=== PATIENT | female | born 1955 | race Caucasian/White ===

== ENCOUNTER 2020-10-19 06:59 | Day surgery (SDC) | payer MEDICARE ==
[~2020-10-19] VITALS: Ht 154.9 cm; Wt 64.0 kg
[2020-10-19] MEDS ORDERED: NORVASC 10MG10 MG PO (07:32)
[2020-10-19] MEDS ORDERED: CALCIUM 600MG+D1 TAB PO (07:33)
[2020-10-19] MEDS ORDERED: BUSPAR10 MG PO (07:33)
[2020-10-19] MEDS ORDERED: LOTENSIN40 MG PO (07:33)
[2020-10-19] MEDS ORDERED: LEXAPRO20 MG PO (07:34)
[2020-10-19] MEDS ORDERED: RT ADVAIR 228 DISKUS IH (07:35)
[2020-10-19] MEDS ORDERED: HCTZ 25MG TAB25 MG PO (07:35)
[2020-10-19] MEDS ORDERED: NASONEX SPRAY17 GM NS (07:36)
[2020-10-19] MEDS ORDERED: LOPRESSOR 550 MG/TAB PO (07:36)
[2020-10-19] MEDS ORDERED: ZOCOR 40MG40 MG PO (07:37)
[2020-10-19] MEDS ORDERED: REQUIP 1MG T1 MG/TAB PO (07:37)
[2020-10-19] MEDS ORDERED: ZYRTEC 10MG10 MG PO (07:38)
[2020-10-19 07:51] VITALS: BP 134/77; PULSE 84; TEMP 98.5
[2020-10-19 09:50] VITALS: BP 90/63; PULSE 81; TEMP 97.9
--- NOTE | 2020-10-19 09:50 | NUR ---
PATIENT TRANSPORTED PER CART FROM GI SUITE TO BAY 7 ACCOMPANIED BY SAUNDRA RN. PATIENT AMBULATED FROM CART TO CHAIR WITH 2 ASSIST SLOW STEADY GAIT. MONITORS APPLIED. VSS ON ROOM AIR. FRIEND IN ROOM. VERBAL REPORT RECEIVED. PATIENT TALKING.
[2020-10-19 10:00] VITALS: BP 108/60; PULSE 70
--- NOTE | 2020-10-19 10:05 | NUR ---
VSS ON ROOM AIR. PATIENT TALKING WITH FRIEND. TOLERATES JUICE AND MUFFIN WITHOUT NAUSEA. DENIES DISCOMFORT. DOCTOR HAS BEEN IN ROOM AND SPEAKS WITH PATIENT.
[2020-10-19 10:15] VITALS: BP 106/65; PULSE 72
--- NOTE | 2020-10-19 10:16 | NUR ---
VSS ON ROOM AIR. PATIENT TALKING ON PHONE.
[2020-10-19 10:30] VITALS: BP 113/60; PULSE 79
--- NOTE | 2020-10-19 10:35 | NUR ---
VSS ON ROOM AIR. IV DC'D. DISCHARGE INSTRUCTIONS GIVEN VERBAL AND DISCHARGE PACKET PROVIDED. QUESTIONS ANSWERED AND PATIENT VOICED UNDERSTANDING. FRIEND IN ROOM PATIENT CHANGES INTO STREET CLOTHES.
--- NOTE | 2020-10-19 10:40 | NUR ---
Patient discharged per wheel chair accompanied by amb staff to private vechile driven by friend.
== END 2020-10-19 10:40 | disposition home or self-care (01) ==
LOC: SDCO 06:59
DX: Z12.11 Encounter for screening for malignant neoplasm of colon (principal); D12.5 Benign neoplasm of sigmoid colon; K57.30 Diverticulosis of large intestine without perforation or abscess without bleeding; I10 Essential (primary) hypertension; J44.9 Chronic obstructive pulmonary disease, unspecified; G47.33 Obstructive sleep apnea (adult) (pediatric); G25.81 Restless legs syndrome; E78.5 Hyperlipidemia, unspecified; E11.9 Type 2 diabetes mellitus without complications; M85.80 Other specified disorders of bone density and structure, unspecified site; F41.9 Anxiety disorder, unspecified; Z90.89 Acquired absence of other organs; Z99.89 Dependence on other enabling machines and devices; Z79.899 Other long term (current) drug therapy
CPT/HCPCS: J2704; J7120